=== PATIENT | male | born 1990 | race Caucasian/White ===

== ENCOUNTER → 2018-07-30 | Outpatient (CLI) | payer BC | LOC: DL.CLIN 08:40 | PROVIDERS: ATTEND Nurse Practitioner | DX: Z72.51 High risk heterosexual behavior (principal) | CPT/HCPCS: 86592; 86803; 87340; 87389; 87491; 87591 ==

== ENCOUNTER 2022-05-18 17:26 | Emergency (ER) | payer BC | END 2022-05-18 18:41 | disposition home or self-care (01) | LOC: DL.ED 17:26 | DX: S83.92XA Sprain of unspecified site of left knee, initial encounter (principal); X50.9XXA Other and unspecified overexertion or strenuous movements or postures, initial encounter; Y93.67 Activity, basketball | CPT/HCPCS: 73562-LT; 99282; 99283 ==